=== PATIENT | male | born 1955 | race Caucasian/White ===

== ENCOUNTER → 2016-03-15 | Outpatient (CLI) | payer OTHER ==
--- NOTE | 2016-03-15 13:17 | CT ---
CT Coronary Calcium Score Indication: 60-year-old male history of hyperlipidemia and family history of heart disease. Baseline calcium scoring. Technique: Prospectively gated noncontrast images through the chest without contrast. Dose reduction techniques were utilized. Comparison: None. Findings: Calcium score according to the Agatston-Janowitz criteria is 281 which is consistent with t he 80th percentile for age (20% of men between the ages of 56 and 60 will have a higher calcium score ). Calcified plaque is limited to the proximal and mid left anterior descending coronary artery. Noncardiac Evaluation: No suspicious pulmonary nodule or enlarged lymph node. The heart size is gregg l. Impression: Moderate atherosclerotic plaque burden. Nonobstructive coronary artery disease is likely an obstructive disease is possible. The radial cardiac event risk rate is 1%. Recommendation: Secondary prevention guidelines according to the [place] [employer]. Consider exercise stress testing, daily aspirin and cholesterol minimizing medications.
== END ==
LOC: CIMAGING 09:27
PROVIDERS: ATTEND Family Medicine
DX: I25.10 Atherosclerotic heart disease of native coronary artery without angina pectoris (principal); E78.5 Hyperlipidemia, unspecified; Z82.49 Family history of ischemic heart disease and other diseases of the circulatory system
CPT/HCPCS: 75571-PO

== ENCOUNTER → 2016-08-17 | Outpatient (CLI) | payer OTHER | LOC: FIMAGING 14:12 | PROVIDERS: ATTEND Family Medicine | DX: E78.5 Hyperlipidemia, unspecified (principal); I25.10 Atherosclerotic heart disease of native coronary artery without angina pectoris ==